=== PATIENT | male | born 1955 | race Caucasian/White ===

== ENCOUNTER 2017-08-20 07:24 | Day surgery (SDC) | payer BC ==
[~2017-08-20] VITALS: Ht 185.4 cm; Wt 103.4 kg
[~2017-08-20 07:24] MED LIST: ABILIFY5 MG PO; CYCLOBENZAPRINE5 MG PO; OMEPRAZOLE20 MG PO; PERCOCET 7.5-31 EACH PO; PRILOSEC20 MG PO
--- NOTE | 2017-08-20 08:46 | NUR ---
has been up to br. iv patent. abx statrted.
--- NOTE | 2017-08-20 10:20 | NUR ---
08/20/17 1020 Chetna Ruiz PATIENT'S OXYGEN SATURATION REMAINS 99% ON 2L VIA NC. OXYGEN IS DISCONTINUED AT THIS TIME. DR. BAR IS AT THE BEDSIDE SPEAKING WITH THE PATIENT AND HIS QUESTIONS ARE ANSWERED.
--- NOTE | 2017-08-20 14:04 | OR ---
[facility] [address], [place] [address] Signed DATE OF OPERATION: 08/20/2017 SURGEON: Christin Bar MD PREOPERATIVE DIAGNOSIS: Colon screening. POSTOPERATIVE DIAGNOSES: 1. Large pedunculated polyp at 15 cm. 2. Diminutive polyp of rectum. 3. Hypertrophy of mucosa of ileocecal valve. PROCEDURES: 1. Total colonoscopy to cecum with intubation of ileum and biopsy. 2. Hot snare polypectomy x1. 3. Cold morcellation polypectomy x1. ANESTHESIA: Intravenous sedation, fentanyl 100 mcg, Versed 8 mg. INDICATION: This 62-year-old white man has no primary care physician, but was last seen by me in 2009, at which time he had 2 small ulcerations of the transverse colon of an uncertain etiology. He is here for screening colonoscopy. He is asymptomatic and has been recently. He has had no blood per rectum, diarrhea, or constipation. He understands the risks of bleeding, infection, and perforation related to colonoscopy and wished to proceed. FINDINGS: The prep was excellent. Complete colonoscopy was undertaken to the cecum. An intubation of the ileum was accomplished as well. He seemed to have mucosal hypertrophy of the ileum, but no ulceration, stricture, or any signs particularly of inflammatory bowel disease. There was a relatively large 1.5 cm pedunculated polyp of the distal sigmoid at 15 cm which was excised with hot snare polypectomy technique and a diminutive small polyp of the rectum, which was excised with cold morcellation technique. The remaining colon was normal. DESCRIPTION OF PROCEDURE: The patient was brought to the endoscopy suite and placed in lateral decubitus position, given intravenous sedation to the point of slurred speech and nystagmus. Digital rectal Electronically Signed By: CHRISTIN BAR MD 08/20/17 1404 PATIENT NAME: ELVIA HERNANDEZ OPERATIVE REPORT DATE OF : 55 REPORT #: [id number] PHYSICIAN: CHRISTIN BAR MD PCP: NO PRIMARY CARE PHYSICIAN REPORT IS CONFIDENTIAL AND NOT TO BE RELEASED WITHOUT AUTHORIZATION [facility] [address] [place], [place] [address] Signed examination was normal. An Olympus video colonoscope was passed in the rectum and manipulated throughout the colon ultimately intubating the cecum itself. The ileocecal valve appeared normal, but there were hypertrophied mucosal changes there without ulceration. Neuro band imaging was used as well. The scope was then advanced into the ileum without problem and biopsies taken of mucosa of the ileum. The scope was withdrawn to the cecum and careful withdrawal of the scope showed no abnormality. Upon withdrawal of scope until the distal sigmoid at 15 cm where a relatively large pedunculated adenomatous polyp was noted. This was excised with hot snare polypectomy technique in the usual way. The specimen was passed for pathology. There was good hemostasis. Further withdrawal of scope to the rectum upon re-inspection showed a small polyp of the rectal mucosa. This was excised with cold morcellation technique. Retroflexed view was normal. Scope was removed. The patient was taken to the recovery room in good condition. CONCLUDING DIAGNOSES: 1. Hypertrophied mucosa of the ileocecal valve and the ileum, probably benign. 2. Pedunculated polyp at 15 cm (excised). 3. Diminutive polyp of rectum. PLAN: Recommend repeat colonoscopy in 2 years or sooner if clinically indicated. He will return if there are problems. MD MELY Suarez/MODL /[id number] Copies: ~ Electronically Signed By: CHRISTIN BAR MD 08/20/17 1404 PATIENT NAME: ELVIA HERNANDEZ OPERATIVE REPORT DATE OF : 55 REPORT #: [id number] PHYSICIAN: CHRISTIN BAR MD PCP: NO PRIMARY CARE PHYSICIAN REPORT IS CONFIDENTIAL AND NOT TO BE RELEASED WITHOUT AUTHORIZATION
== END 2017-08-20 10:45 | disposition home or self-care (01) ==
LOC: DS 07:24 → OPS 07:24 → DS 09:00 → OPS 10:45
PROVIDERS: Surgery
PROC: 0DBN8ZZ Excision of Sigmoid Colon, Via Natural or Artificial Opening Endoscopic (ICD-10-PCS; 2017-08-20)
PROC: 0DBP8ZZ Excision of Rectum, Via Natural or Artificial Opening Endoscopic (ICD-10-PCS; principal; 2017-08-20 09:00)
DX: Z12.11 Encounter for screening for malignant neoplasm of colon (principal); D12.5 Benign neoplasm of sigmoid colon; K62.1 Rectal polyp; K63.89 Other specified diseases of intestine; K75.81 Nonalcoholic steatohepatitis (NASH); K21.9 Gastro-esophageal reflux disease without esophagitis; E78.00 Pure hypercholesterolemia, unspecified; G47.30 Sleep apnea, unspecified; Z88.2 Allergy status to sulfonamides; Z98.890 Other specified postprocedural states; Z83.71 Family history of colonic polyps
CPT/HCPCS: 99153; G0500; J0690; J2250; J3010; J7120

== ENCOUNTER 2021-02-03 06:10 | Day surgery (SDC) | payer BC ==
[~2021-02-03] VITALS: Ht 185.4 cm; Wt 115.0 kg
--- NOTE | 2021-02-03 08:12 | NUR ---
02/03/21 0812 Love Burden 0805 PT ARRIVED IN PACU AWAKE WITH NO C/O'S. ABD SOFT AND PASSING FLATUS. 0812 RESTING. REU.
--- NOTE | 2021-02-03 18:56 | OR ---
[facility] [address] [place], [place] [address] Signed DATE OF OPERATION: 02/03/2021 SURGEON: Christin Bar MD PREOPERATIVE DIAGNOSES: 1. History of adenomatous polyps, last colonoscopy 2017. 2. Family history of colon cancer in maternal grandmother. POSTOPERATIVE DIAGNOSIS: Possible polyp at 80 cm (excised). PROCEDURE: Total colonoscopy to cecum with cold morcellation polypectomy x1. ANESTHESIA: Intravenous sedation, fentanyl 150 mcg and Versed 5 mg. INDICATION: This 65-year-old white man is a patient of SEEMA Lara. He is known to me from the past having undergone colonoscopy. He last underwent colonoscopy in 2017, at which time he was found to have adenoma excision at 25 cm. He has family history of colon cancer in maternal grandmother, but has no symptoms of bleeding, diarrhea or constipation. Notably, the patient had COVID disease in January of 2019. He also had knee replacement in March 2020. He has been given Ancef 2 g preoperatively anticipating surveillance colonoscopy at this time. The risk of bleeding, infection, and perforation were reviewed with him. He understands and wished to proceed. FINDINGS: The prep was good. Complete colonoscopy was undertaken to the cecum without question. He had one area that was suggestive of polyp of the descending colon at approximately 90 cm, this was excised completely. It is not certain that this is an adenomatous polyp, but there was certainly mucosal abnormality. There were no other findings of concern. DESCRIPTION OF PROCEDURE: The patient was brought to the endoscopy suite and placed in lateral decubitus position, given intravenous sedation to the point of slurred speech and nystagmus. Full cardiopulmonary monitoring was maintained. Digital rectal examination was performed which was normal. Preoperative antibiotic Ancef was given. An Olympus video colonoscope was passed in the rectum and manipulated Electronically Signed By: CHRISTIN BAR MD 02/03/21 8228 PATIENT NAME: ELVIA HERNANDEZ OPERATIVE REPORT DATE OF : 55 REPORT #: [id number] PHYSICIAN: CHRISTIN BAR MD PCP: RAMYA UP REPORT IS CONFIDENTIAL AND NOT TO BE RELEASED WITHOUT AUTHORIZATION [facility] [address] [place], [place] [address] Signed throughout the colon ultimately intubating the cecum itself. The ileocecal valve and appendiceal orifice were normal. He had a very good bowel prep. The scope was withdrawn from that point. Examination throughout showed no sign of abnormality until approximately 80 cm from the anal verge, where a mucosal abnormality was noted. It is uncertain if this represented a hyperplastic polyp, less likely an adenomatous one. This was excised with cold morcellation without problem. Further withdrawal of scope showed no sign of other abnormality. Retroflexed view of the rectum was normal. Scope was removed and the patient was taken to the recovery room in good condition. CONCLUDING DIAGNOSIS: Essentially normal colon; 80 cm lesion may or may not be adenomatous. If it is, would recommend repeat colonoscopy in 5 to 7 years, if not 10 years or sooner if symptoms should develop. MD MELY Suarez/RICHIL /[id number] cc: SEEMA Lara Copies: RAMYA UP ~ Electronically Signed By: CHRISTIN BAR MD 02/03/21 1856 PATIENT NAME: ELVIA HERNANDEZ OPERATIVE REPORT DATE OF : 55 REPORT #: [id number] PHYSICIAN: CHRISTIN BAR MD PCP: RAMYA UP REPORT IS CONFIDENTIAL AND NOT TO BE RELEASED WITHOUT AUTHORIZATION
== END 2021-02-03 08:35 | disposition home or self-care (01) ==
LOC: OPS 06:10 → DS 06:10 → OPS 06:45
PROVIDERS: ATTEND Surgery
PROC: 0DBM8ZZ Excision of Descending Colon, Via Natural or Artificial Opening Endoscopic (ICD-10-PCS; principal; 2021-02-03 06:45)
DX: Z12.11 Encounter for screening for malignant neoplasm of colon (principal); K63.5 Polyp of colon; K21.9 Gastro-esophageal reflux disease without esophagitis; E78.00 Pure hypercholesterolemia, unspecified; G47.30 Sleep apnea, unspecified; Z88.2 Allergy status to sulfonamides; Z87.19 Personal history of other diseases of the digestive system; K57.81 Diverticulitis of intestine, part unspecified, with perforation and abscess with bleeding; Z86.010 Personal history of colon polyps; Z80.0 Family history of malignant neoplasm of digestive organs
CPT/HCPCS: 99153; G0500; J0690; J2250; J3010; J7121